=== PATIENT | female | born 1975 | race Caucasian/White ===

== ENCOUNTER 2017-03-11 13:55 | Emergency (ER) | payer OTHER | END 2017-03-11 14:01 | disposition home or self-care (01) | LOC: ER 13:55 | DX: M54.5 Low back pain (principal); S32.2XXD Fracture of coccyx, subsequent encounter for fracture with routine healing; F17.200 Nicotine dependence, unspecified, uncomplicated; Z88.5 Allergy status to narcotic agent; X58.XXXD Exposure to other specified factors, subsequent encounter | CPT/HCPCS: 72100; 72220; 99283 ==